=== PATIENT | male | born 1950 | race Caucasian/White ===

== ENCOUNTER → 2022-12-18 10:11 | Outpatient (CLI) | payer OTHER, SELFPAY ==
--- NOTE | 2022-12-18 | DI.ECHO.S_ITS ---
[facility] +---------+ : : [address] : [place] : : : : [id number] : : : : Phone: [phone]+ Echocardiogram Report + + :Name: ORTEGA MATTHEWS Study Date: 12/18/2022 Height: 68 in : :[facility] ReadingLocation: Weight: 185 lb : : Gender: Male BSA: 2.0 m2 : :: 1950 Age: 72 yrs BP: 140/74 mmHg: :Reason For Study: Atherosclerotic Heart Disease : :Ordering Physician: ABDIRASHID, : :NARCISA Bethea Performed By: Becky Isabel : :Referring: NARCISA VARELA : + + Interpretation Summary The ejection fraction is estimated to be 60-65%. Diastolic parameters suggest probable normal left ventricular diastolic function and normal filling pressures. The right ventricle is normal in size and function. There is mild aortic regurgitation. Pulmonary artery pressures cannot be estimated because of the lack of a measurable TR jet velocity but the IVC suggests a CVP of around 3 mmHg. Procedure: A two-dimensional transthoracic echocardiogram with color flow and Doppler was performed. The study quality was technically adequate. There is no prior echocardiogram noted for this patient. The patient was in a bradycardic rhythm during the exam. Left Ventricle: The left ventricle is normal in size. The ejection fraction is estimated to be 60-65%. Diastolic parameters suggest probable normal left ventricular diastolic function and normal filling pressures. Right Ventricle: The right ventricle is normal in size and function. Atria: The left atrial size is normal. Right atrial size is normal. Chiari network (normal variant) is noted. There is no Doppler evidence for an interatrial shunt. Mitral Valve: The mitral valve leaflets appear borderline thickened, but open well. Redundant elongated chordae are noted. There is no mitral valve stenosis. There is trace mitral regurgitation. Aortic Valve: The aortic valve is trileaflet. The aortic valve is slightly calcified. There is no aortic valve stenosis. There is mild aortic regurgitation. Tricuspid Valve: The tricuspid valve is normal. There is no tricuspid stenosis. There is trace tricuspid regurgitation. Pulmonary artery pressures cannot be estimated because of the lack of a measurable TR jet velocity but the IVC suggests a CVP of around 3 mmHg. Pulmonic Valve: The pulmonic valve is not well visualized. There is no pulmonic valvular stenosis. There is trace pulmonic regurgitation. Great Vessels: The aortic root is normal size. The ascending aorta is normal in size. The pulmonary artery is normal size. The IVC is of normal diameter and collapses greater than 50% with a sniff. This suggests a low right atrial pressure of 3 mm Hg. Pericardium/ Pleura There is no pericardial effusion. There is no pleural effusion. MMode/2D Measurements & Calculations LVIDd: 5.3 cm LVOT diam: 1.8 cm LVIDs: 3.5 cm Ao root diam: 3.4 cm FS: 34.0 % asc Aorta Diam: 3.0 cm IVSd: 1.0 cm LVPWd: 1.1 cm LV teague. diameter/BSA (cm/m^2): 2.7 LV sys. diameter/BSA (cm/m^2): 1.8 LA A2 area: 18.8 cm2 RA long axis: 5.3 cm LA A4 area: 15.2 cm2 RA area: 12.1 cm2 LA length (vol): 5.5 cm RA vol: 23.5 ml LA vol: 44.3 ml RA : 11.9 ml/m2 LA vol index: 22.4 ml/m2 RVD1 (basal): 3.3 cm LVLs ap4: 6.2 cm LVLd ap2: 7.0 cm TAPSE_phl: 2.1 cm LVLs ap2: 5.7 cm Doppler Measurements & Calculations Ao V2 max: 184.0 cm/sec LVOT Max Jer: 89.0 cm/sec Ao V2 mean: 124.7 cm/sec LV V1 max P.2 mmHg Ao max P.0 mmHg LV V1 VTI: 21.3 cm Ao mean P.3 mmHg JULIEN(I,D): 1.2 cm2 Ao V2 VTI: 46.4 cm JULIEN(V,D): 1.2 cm2 sev ratio: 0.46 JULIEN indexed to BSA (cm^2/m^2): 0.59 MV E max jer: 71.6 cm/sec TR max jer: 190.8 cm/sec MV A max jer: 79.5 cm/sec TR max P.6 mmHg MV E/A: 0.90 PA V2 max: 86.5 cm/sec Med Peak E' Jer: 7.8 cm/sec PA V2 mean: 60.2 cm/sec E/E' med: 9.2 PA mean P.0 mmHg Lat Peak E' Jer: 8.4 cm/sec PA pr(Accel): 26.8 mmHg E/E' lat: 8.5 E/e' average: 8.9 MV dec time: 0.20 sec SV(LVOT): 54.1 ml AV VR_phl: 0.48 JULIEN(VTI)/BSA_phl: 0.59 Reading Physician:04:59 PM
--- NOTE | 2022-12-18 21:57 | DI.NM.S_ITS ---
DATE OF SERVICE: 12/18/2022 PROCEDURE: Exercise treadmill stress and rest myocardial perfusion imaging with gating to assess ejection fraction and regional wall motion. ORDERING PROVIDER: Narcisa Varela M.D. INDICATIONS: The patient is a 72-year-old male with known coronary artery calcification and hypertension. CARDIAC STRESS: The patient was able to exercise for 6 minutes and 32 seconds on a standard Shawn protocol suggesting mildly impaired exercise capacity with an KAILEY of +7%, achieving 7.0 METS. He had a normal heart rate response to exercise, achieving a maximum heart rate of 138 BPM (93% of his predicted maximum). He had a mild hypertensive blood pressure response with a resting blood pressure of 138/88, increasing to a maximum of 202/96. He had no chest discomfort or other anginal symptoms. His resting ECG showed sinus rhythm with normal ST segments. There were no significant ST-segment shifts with exercise. He had occasional PACs but no complex ectopy. At 5 minutes and 36 seconds of exercise, at a heart rate of 126 BPM, 25.0 millicuries of technetium-99m Myoview was injected and he was imaged 20 minutes later using a gated SPECT acquisition protocol. Earlier in the day while at rest, he had been injected with 11.9 millicuries of technetium-99m Myoview and was imaged 20 minutes later, again using a gated SPECT acquisition protocol. FINDINGS: 1. Raw data: There is fair myocardial tracer uptake. The lung/heart ratio is normal at 0.33 with a normal TID ratio of 0.96. 2. Quantitated gated SPECT: Post-stress ejection fraction is estimated at 65% without any focal wall motion abnormality and specifically the inferior wall appears to have normal contractility. The resting ejection fraction is 61% with mildly increased left ventricular volumes with a resting end-diastolic volume of 152 mL. 3. Myocardial perfusion imaging: Post-stress supine images show a fairly normal perfusion pattern except a mild defect in the inferior wall in a pattern that would be consistent with diaphragmatic attenuation, supported by its resolution on the prone images, revealing a more homogeneous, uniform pattern of perfusion. The resting images show a similar perfusion pattern without any areas of improvement compared to the supine stress images. IMPRESSION: 1. Probable normal myocardial perfusion study. 2. Mild fixed inferior wall perfusion defect that resolves on prone imaging, most consistent with diaphragmatic attenuation. There is no compelling evidence for myocardial ischemia or previous myocardial infarction. 3. Normal left ventricular systolic function without focal wall motion abnormality but mildly increased left ventricular volumes. 4. Mildly impaired exercise capacity without angina or ECG evidence of ischemia but a mild hypertensive blood pressure response to exercise. He had occasional PACs with stress and in recovery. Liliana Tinsley - BARRY/[place]/YANELIS doc#: [id number]/job#: [id number] dd: 12/18/2022 16:32:00 dt: 12/18/2022 21:45:00 DICTATING MD/COPIES TO: Rik Mckeon MD; Narcisa Varela M.D. COPIES MNE: VIKY;
== END ==
LOC: NUCM 10:14
PROVIDERS: Referring Provider Internal Medicine Cardiovascular Disease; Visit Provider Internal Medicine Cardiovascular Disease
DX: I35.1 Nonrheumatic aortic (valve) insufficiency (principal); I25.10 Atherosclerotic heart disease of native coronary artery without angina pectoris; I10 Essential (primary) hypertension; E78.5 Hyperlipidemia, unspecified
CPT/HCPCS: 78452; 93017; 93306; A9502

== ENCOUNTER → 2024-07-31 13:54 | Outpatient (CLI) | payer MEDICARE, SELFPAY ==
--- NOTE | 2024-07-31 13:56 | DI.ECHO.S_ITS ---
[facility] +---------+ [facility] : : [address] : : [place] : : [id number] : : Phone: [phone] Echocardiogram Report + + :Name: ORTEGA MATTHEWS Study Date: 07/31/2024 Height: 68 in : :Hospital ReadingLocation: Weight: 178 lb : : Gender: Male BSA: 1.9 m2 : :: 1950 Age: 73 yrs BP: 119/62 mmHg: :Reason For Study: AORTIC VALVE INSUFFICIENCY : :Ordering Physician: ABDIRASHID, : :NARCISA Bethea Performed By: Elbert Mark : :Referring: NARCISA VARELA : + + Interpretation Summary The ejection fraction is estimated to be 60-65%. Diastolic parameters suggest probable normal left ventricular diastolic function and normal filling pressures. The right ventricle is borderline dilated. The right ventricular systolic function is normal. There is mild aortic stenosis. There is mild aortic regurgitation. There is mild tricuspid regurgitation. The right ventricular systolic pressure is estimated to be at least 32 mmHg based on an estimated right atrial pressure of 8 mm Hg. Compared to the prior study 11/28/2022, the aortic valve gradient has increased. Procedure: A two-dimensional transthoracic echocardiogram with color flow and Doppler was performed. The study quality was technically good. Comparison is made with the echocardiogram of 12/18/2022. Sinus bradycardia in the 50s. Left Ventricle: The left ventricle is normal in size. There is normal left ventricular wall thickness. There is no ventricular septal defect visualized. The ejection fraction is estimated to be 60-65%. There are no focal wall motion abnormalities. Diastolic parameters suggest probable normal left ventricular diastolic function and normal filling pressures. Right Ventricle: The right ventricle is borderline dilated. The right ventricular systolic function is normal. Atria: The left atrial size is normal. Chiari network (normal variant) is noted. Right atrial size is normal. There is no Doppler evidence for an interatrial shunt. Mitral Valve: The mitral valve leaflets appear borderline thickened, but open well. There is trace mitral regurgitation. Aortic Valve: The aortic valve is trileaflet. The aortic valve is mildly calcified. There is mild aortic stenosis. The peak aortic velocity is 2.5 m/sec. The aortic valve mean gradient is 12.4 mmHg. There is mild aortic regurgitation. Tricuspid Valve: The tricuspid valve leaflets are thin and pliable. There is mild tricuspid regurgitation. The right ventricular systolic pressure is estimated to be at least 32 mmHg based on an estimated right atrial pressure of 8 mm Hg. Pulmonic Valve: The pulmonic valve is not well visualized. There is no pulmonic valvular regurgitation. Great Vessels: The aortic root is mildly dilated. The dimensions of the ascending aorta are normal. The pulmonary artery is normal size. The IVC is dilated (diameter is greater than 2.1 cm) yet it collapses greater than 50% with a sniff. This suggests a right atrial pressure of 8 mm Hg. Pericardium/ Pleura There is no pericardial effusion. There is no pleural effusion. MMode/2D Measurements & Calculations LVIDd: 5.5 cm LVOT diam: 1.9 cm LVIDs: 3.6 cm Ao root diam: 3.7 cm FS: 34.9 % asc Aorta Diam: 3.4 cm EPSS: 0.97 cm IVSd: 0.88 cm LVPWd: 1.0 cm LV teague. diameter/BSA (cm/m^2): 2.8 LV sys. diameter/BSA (cm/m^2): 1.8 LA A2 area: 19.9 cm2 RA long axis: 5.5 cm LA A4 area: 21.3 cm2 RA area: 20.7 cm2 LA length (vol): 5.9 cm RA vol: 66.0 ml LA vol: 61.5 ml RA : 33.9 ml/m2 LA vol index: 31.6 ml/m2 IVC diam: 2.1 cm RVD1 (basal): 4.2 cm RVD2 (mid): 2.8 cm TAPSE: 3.1 cm Doppler Measurements & Calculations Ao V2 max: 245.1 cm/sec LVOT Max Jer: 146.7 cm/sec Ao V2 mean: 165.6 cm/sec LV V1 max P.6 mmHg Ao max P.0 mmHg LV V1 VTI: 30.9 cm Ao mean P.4 mmHg JULIEN(I,D): 1.8 cm2 Ao V2 VTI: 50.4 cm JULIEN(V,D): 1.8 cm2 sev ratio: 0.61 JULIEN indexed to BSA (cm^2/m^2): 0.94 MV E max jer: 48.6 cm/sec TR max jer: 242.7 cm/sec MV A max jer: 72.0 cm/sec TR max P.6 mmHg MV E/A: 0.67 PA V2 max: 119.0 cm/sec Med Peak E' Jer: 6.4 cm/sec PA V2 mean: 87.6 cm/sec E/E' med: 7.6 PA mean P.3 mmHg Lat Peak E' Jer: 7.2 cm/sec PA pr(Accel): 48.2 mmHg E/E' lat: 6.7 E/e' average: 7.2 MV dec time: 0.30 sec SV(LVOT): 92.1 ml Reading Physician:05:25 PM
== END ==
LOC: ECHO 13:55
PROVIDERS: Referring Provider Internal Medicine Cardiovascular Disease; Visit Provider Internal Medicine Cardiovascular Disease
DX: I08.2 Rheumatic disorders of both aortic and tricuspid valves (principal); I77.810 Thoracic aortic ectasia
CPT/HCPCS: 93306